=== PATIENT | female | born 1995 | race African-American/Black ===

== ENCOUNTER 2022-02-27 09:36 | Emergency (ER) | payer MEDICAID ==
[~2022-02-27] VITALS: Ht 170.2 cm; Wt 85.0 kg
[2022-02-27] MEDS ORDERED: ACETAMINOPHEN 325MG TABLET PO ONE (10:15)
[2022-02-27] MEDS ORDERED: GUAI-741 MT (11:11)
[2022-02-27] MEDS ORDERED: ONDA4TAB50 MT (11:11)
[2022-02-27 11:29] VITALS: BP 127/86
== END 2022-02-27 11:30 | disposition home or self-care (01) ==
LOC: ER 10:10
DX: U07.1 COVID-19 (principal); Z88.0 Allergy status to penicillin
CPT/HCPCS: 99283